=== PATIENT | female | born 1970 | race Caucasian/White ===

== ENCOUNTER 2022-12-10 11:00 | Outpatient (OUT) | payer MEDICARE, MEDICAID, SELFPAY ==
--- NOTE | 2022-12-10 12:55 | PM.CN ---
Consult Note: HPI Data of Consult Patient: new to practice Consult date: 12/10/22 Requesting Physician: Alf Wylie MD Primary Care Provider: Sophie Buenrostro Consult Narrative Reason for consult: Low back, right leg pain Narrative: this is a pleasant 52-year-old female who presents for evaluation. She notes increasing pain that radiates from the low back into the right lower extremity. She has a history of lumbar surgery years ago. She has not had any updated advanced imaging of her lumbar spine for several years. She has engaged and provided written home exercises, which did not provide much relief. She is currently utilizing Flexeril and Lyrica, which provide some relief. She otherwise denies adverse medication side effects or loss of bowel or bladder control. cc:: CC: Alf Wylie MD Review of Systems ROS Status of ROS 10 or more systems reviewed and unremarkable except as noted in history and below Musculoskeletal Reports: back pain and extremity pain (Right leg) Meds Home Medications and Allergies Home Medications Medication Instructions Recorded Confirmed Type amitriptyline 50 mg tablet 50 mg PO DAILY 12/10/22 12/10/22 History atorvastatin 10 mg tablet 10 mg PO DAILY 12/10/22 12/10/22 History cyclobenzaprine 10 mg tablet 10 mg PO QPM PRN as needed 12/10/22 12/10/22 History dulaglutide 3 mg/0.5 mL 3 mg subcut QWEEK 12/10/22 12/10/22 History subcutaneous pen injector (Trulicity) duloxetine 60 mg capsule,delayed 60 mg PO DAILY 12/10/22 12/10/22 History release lantus 50 mg subcut (via wearable 12/10/22 12/10/22 History injectr) QDAY losartan 25 mg tablet (Cozaar) 25 mg PO DAILY 12/10/22 12/10/22 History metformin 1,000 mg tablet 1,000 mg PO BID 12/10/22 12/10/22 History pioglitazone 30 mg tablet 30 mg PO DAILY 12/10/22 12/10/22 History pregabalin 150 mg capsule (Lyrica) 150 mg PO TID 12/10/22 12/10/22 History Allergies Allergy/AdvReac Type Severity Reaction Status Date / Time latex Allergy Mild Verified 12/10/22 11:36 Exam Constitutional: Common normals: no apparent distress, oriented x3 and healthy appearing Respiratory: Common normals: normal respiratory effort Effort & inspection: able to speak in complete sentences Back & Pelvis: Lumbar spine/lower back: pain with ROM, lumbar spinal tenderness and paraspinal muscle tenderness Other: tenderness to palpation throughout the lumbar spine. Pain is elicited with flexion, extension, and lateral rotation of the lumbar spine. Facet loading maneuvers are positive bilaterally. Strength noted to be normal throughout the bilateral lower extremities except for decreased strength rated at four out of five in the right quadriceps femoris, anterior tibialis, posterior tibialis. Sensation noted to be normal throughout the bilateral lower extremities except for dysesthesia in the right L4, L5, S1 dermatomal distributions. Coordination remains intact. Gait remains mildly antalgic. Extremity: Common normals: normal to inspection Right lower extremity: upper leg and lower leg Neuro: Common normals: oriented x3, CN's II-XII intact bilaterally and no focal motor deficits Psych: Common normals: mental status grossly normal and cooperative Skin: Common normals: no rashes or lesions noted General skin exam: no rashes or lesions noted Assessment and Plan Assessment and Plan (1) Lumbar stenosis with neurogenic claudication: (2) Lumbar postlaminectomy syndrome: (3) Lumbar spondylosis: Plan this is a pleasant 52-year-old female who presents for evaluation. She has filled physical and medical modalities, as listed above. Given her failure to respond to more conservative measures, I would like to update her lumbar imaging to further assess for the etiology of her pain. I will have her undergo a lumbar MRI without contrast, as well as an x-ray of the sacrum and bilateral hips. She is in agreement with this plan. Medications were reviewed. We discussed that no additional medications would be adequate at this time, given her current regimen. She expressed understanding. She'll follow up after the imaging is complete.
== END 2022-12-10 11:01 ==
LOC: PM 12-28 10:14
PROVIDERS: PCP Nurse Practitioner; Visit Provider Anesthesiology
DX: M48.062 Spinal stenosis, lumbar region with neurogenic claudication (principal); M96.1 Postlaminectomy syndrome, not elsewhere classified; M47.816 Spondylosis without myelopathy or radiculopathy, lumbar region
CPT/HCPCS: G0463

== ENCOUNTER 2022-12-21 12:28 | Outpatient (OUT) | payer MEDICARE, MEDICAID, SELFPAY ==
--- NOTE | 2022-12-21 12:46 | MR_ITS ---
[address] [address] Patient Name: ESTEBAN MARMOLEJO MRN: [facility]:[id number] date: 1970 Sex: F Assigned Patient Location: MRI Current Patient Location: MRI Accession/Order Number: [id number] Exam Date: 12/21/2022 13:00 Report Date: 12/22/2022 09:04 At the request of: MICHAEL CHIU Procedure: MR lumbar spine wo con EXAMINATION: MR lumbar spine wo con HISTORY: Post-lami syndrom ; chronic lumbar spine pain with right leg pain and weakness COMPARISON: MRI L-spine 08/27/2019 TECHNIQUE: A variety of imaging planes and parameters were utilized for visualization of suspected pathology. FINDINGS: For the purposes of numbering, sagittal T2 image # 10 extends from the T10-11 vertebral body superiorly to the S2 level inferiorly. PARASPINAL AREA: Normal with no visible mass. BONES: No fracture, pars defect, or osseous lesion. CORD/CAUDA EQUINA: Normal caliber, contour, and signal intensity. DISC LEVELS: 12-L1: Moderate degenerative disc disease is present without visible neural impingement. L1-L2: Marked central canal and right foramen narrowing. Moderate left foramen narrowing. Marked diffuse disc bulging slightly eccentric to the right and moderate disc height reduction. Moderate degenerative facet arthropathy and ligamentum flavum thickening bilaterally. Increased central canal fat. L2-L3: Moderate marked central canal and moderate bilateral foramen narrowing. Moderate diffuse disc bulging and disc height reduction. Moderate degenerative facet arthropathy and increased central canal fat. L3-L4: Marked central canal and left foramen narrowing. Moderate right foramen narrowing. Moderate diffuse disc bulging with marked disc height reduction. Moderate marked degenerative facet arthropathy. L4-L5: No significant central canal or right foramen narrowing. Moderate left foramen narrowing. Moderate disc bulging eccentric to the left. Marked disc height reduction. Mild degenerative facet arthropathy. L5-S1: No significant central canal narrowing. Moderate right, marked left foramen narrowing. Marked diffuse disc bulging with left paracentral/foraminal disc protrusion projecting 8 mm into the central canal and extending into the foramen. IMPRESSION: 1. Examination is slightly limited by patient body habitus. 2. Marked central canal narrowing L1-2 through L3-4 secondary to degenerative disc disease and facet arthropathy, but primarily exacerbated by increased fat within the central canal. No appreciable fat within the central canal at L4-5 and L5-S1 which allows for ample room for the nerve roots. 3. Multilevel moderate-marked foramen narrowing secondary to degenerative disc disease and facet arthropathy. 4. L5-S1 left paracentral and foraminal disc extrusion, bordering on extrusion. Electronically authenticated by: MARTA GIBBS Date: 12/22/2022 09:04
== END 2022-12-21 12:29 ==
PROVIDERS: PCP Nurse Practitioner; Visit Provider Anesthesiology
DX: M96.1 Postlaminectomy syndrome, not elsewhere classified (principal); M51.36 Other intervertebral disc degeneration, lumbar region; M48.061 Spinal stenosis, lumbar region without neurogenic claudication
CPT/HCPCS: 72148

== ENCOUNTER 2023-01-08 13:26 | Outpatient (OUT) | payer MEDICARE, MEDICAID, SELFPAY ==
--- NOTE | 2023-01-08 13:47 | XR_ITS ---
The [address] [address] Patient Name: ESTEBAN MARMOLEJO MRN: [id number] date: 1970 Sex: F Assigned Patient Location: [facility] Current Patient Location: Accession/Order Number: [id number] Exam Date: 01/08/2023 13:50 Report Date: 01/09/2023 08:35 At the request of: NON-STAFF PHYSICIAN Procedure: XR sacrum coccyx min 2V EXAM: XR hip CHRIS, XR sacrum coccyx min 2V HISTORY: BILATERAL HIP chronic PAIN. LUMBAR/SACRAL PAIN COMPARISON: None. TECHNIQUE: Bilateral two-view hip. 3 views sacrum and coccyx. FINDINGS: Pelvic rings are intact including the sacrum and coccyx where seen although limited by body habitus. Minimal to mild degenerative change of the SI joints. Lower lumbar spondylosis. Minimal degenerative change of the hip joints with no fracture or dislocation. IMPRESSION: Slight early degenerative changes throughout the hips and pelvic rings but no acute process. Electronically authenticated by: MACY RUIZ Date: 01/09/2023 08:35
--- NOTE | 2023-01-08 13:47 | XR_ITS ---
The [address] [address] Patient Name: ESTEBAN MARMOLEJO MRN: [id number] date: 1970 Sex: F Assigned Patient Location: [facility] Current Patient Location: Accession/Order Number: [id number] Exam Date: 01/08/2023 13:50 Report Date: 01/09/2023 08:35 At the request of: NON-STAFF PHYSICIAN Procedure: XR hip CHRIS EXAM: XR hip CHRIS, XR sacrum coccyx min 2V HISTORY: BILATERAL HIP chronic PAIN. LUMBAR/SACRAL PAIN COMPARISON: None. TECHNIQUE: Bilateral two-view hip. 3 views sacrum and coccyx. FINDINGS: Pelvic rings are intact including the sacrum and coccyx where seen although limited by body habitus. Minimal to mild degenerative change of the SI joints. Lower lumbar spondylosis. Minimal degenerative change of the hip joints with no fracture or dislocation. IMPRESSION: Slight early degenerative changes throughout the hips and pelvic rings but no acute process. Electronically authenticated by: MACY RUIZ Date: 01/09/2023 08:35
== END 2023-01-08 13:27 | disposition home or self-care (01) ==
PROVIDERS: PCP Nurse Practitioner; Visit Provider Anesthesiology
DX: M25.552 Pain in left hip (principal); M25.551 Pain in right hip; M47.816 Spondylosis without myelopathy or radiculopathy, lumbar region; M47.818 Spondylosis without myelopathy or radiculopathy, sacral and sacrococcygeal region; M16.0 Bilateral primary osteoarthritis of hip
CPT/HCPCS: 72220; 73522

== ENCOUNTER 2023-01-10 10:23 | Outpatient (OUT) | payer MEDICARE, MEDICAID, SELFPAY ==
--- NOTE | 2023-01-10 11:27 | PM.CN ---
Consult Note: HPI Data of Consult Patient: new to practice Consult date: 01/10/23 Requesting Physician: Alf Wylie MD Primary Care Provider: Sophie Buenrostro Consult Narrative Reason for consult: low back, bilateral lower extremity pain and weakness Narrative: this is a pleasant 52-year-old female who presents for assessment. She notes persistence of pain that radiates from her low back into the bilateral lower extremity. She recently underwent lumbar imaging, which is significant for multiple levels of moderate to severe stenosis, particularly at L2-L3 and L3-L4. There is also significant facet arthropathy throughout essentially her entire lumbar spine. She continues to utilize Lyricaand Flexeril, which provides some relief. She continues in her provider directed home exercises, which have not provided relief. She otherwise denies adverse medications artifactual loss of bowel or bladder control. cc:: CC: Alf Wylie MD Review of Systems ROS Status of ROS 10 or more systems reviewed and unremarkable except as noted in history and below Meds Home Medications and Allergies Home Medications Medication Instructions Recorded Confirmed Type amitriptyline 50 mg tablet 50 mg PO DAILY 12/10/22 12/10/22 History atorvastatin 10 mg tablet 10 mg PO DAILY 12/10/22 12/10/22 History cyclobenzaprine 10 mg tablet 10 mg PO QPM PRN as needed 12/10/22 12/10/22 History dulaglutide 3 mg/0.5 mL 3 mg subcut QWEEK 12/10/22 12/10/22 History subcutaneous pen injector (Trulicity) duloxetine 60 mg capsule,delayed 60 mg PO DAILY 12/10/22 12/10/22 History release lantus 50 mg subcut (via wearable 12/10/22 12/10/22 History injectr) QDAY losartan 25 mg tablet (Cozaar) 25 mg PO DAILY 12/10/22 12/10/22 History metformin 1,000 mg tablet 1,000 mg PO BID 12/10/22 12/10/22 History pioglitazone 30 mg tablet 30 mg PO DAILY 12/10/22 12/10/22 History pregabalin 150 mg capsule (Lyrica) 150 mg PO TID 12/10/22 12/10/22 History Allergies Allergy/AdvReac Type Severity Reaction Status Date / Time latex Allergy Mild Verified 12/10/22 11:36 Exam Constitutional Common normals: no apparent distress, oriented x3 and healthy appearing Respiratory Common normals: normal respiratory effort Effort & inspection: able to speak in complete sentences Back & Pelvis Other: tenderness to palpation through the bilateral lumbar spine and paraspinal musculature. Pain is elicited with flexion, extension, and lateral rotation of the lumbar spine. Facet loading maneuvers are positive bilaterally. Strength noted to be unremarkable throughout the bilateral lower extremities except for decreased strength rated at four out of five in the bilateral quadriceps femoris, anterior tibialis. Sensation noted to be unremarkable throughout the bilateral lower extremities except for dysesthesia in the bilateral L3, L4, L5 dermatomal distributions. Tenderness to palpation throughout the bilateral PSIS. Constantine's maneuver is positive bilaterally. Thigh thrust positive bilaterally. Coordination remains intact. Gait remains mildly antalgic. Extremity Common normals: normal to inspection Neuro Common normals: oriented x3, CN's II-XII intact bilaterally and no focal motor deficits Psych Common normals: mental status grossly normal and cooperative Assessment and Plan Assessment and Plan (1) Sacroiliac joint dysfunction of both sides: (2) Lumbar stenosis with neurogenic claudication: (3) Lumbar postlaminectomy syndrome: (4) Lumbar spondylosis: Plan this is a pleasant 52-year-old female who presents for assessment. She has persistence of pain throughout her low back that radiates into the bilateral lower extremities. Imaging was reviewed, as noted above. Given her failure to respond to conservative measures, coupled with her imaging findings, it is prudent to attempt bilateral L3 transforaminal epidural steroid injection. She may even benefit from bilateral sacroiliac joint injection. She is in agreement with this plan. Medications were reviewed, and no changes were made at this time. She will follow-up after the procedure is completed.
== END 2023-01-10 10:24 | disposition home or self-care (01) ==
LOC: PM 10:23
PROVIDERS: PCP Nurse Practitioner; Visit Provider Anesthesiology
DX: M53.3 Sacrococcygeal disorders, not elsewhere classified (principal); M48.062 Spinal stenosis, lumbar region with neurogenic claudication; M96.1 Postlaminectomy syndrome, not elsewhere classified; M47.816 Spondylosis without myelopathy or radiculopathy, lumbar region
CPT/HCPCS: G0463

== ENCOUNTER 2023-01-24 08:32 | Day surgery (SDC) | payer MEDICARE, MEDICAID, SELFPAY ==
[2023-01-24 09:16] VITALS: BP 186/94; PULSE 89; RESP 14; TEMP 36.3; O2SAT 98
[2023-01-24 09:25] LABS: Glucometer 88 mg/dL (74-106)
[2023-01-24] MEDS: 0.9 % SODIUM CHLORIDE 10 ML INJ (10:01)
[2023-01-24] MEDS: DEXAMETHASONE SODIUM PHOSPHATE 10 MG/ML VIAL INJ (10:02)
[2023-01-24] MEDS: BUPIVACAINE HCL 0.25% PF 25 MG/10 ML VIAL INJ (10:02)
[2023-01-24] MEDS: IOHEXOL 240 MG/ML - 10 ML VIAL INJ (10:02)
[2023-01-24] MEDS: LIDOCAINE HCL 2% PF 100 MG/5 ML VIAL INJ (10:03)
--- NOTE | 2023-01-24 10:04 | W.PM.PROCNOT ---
Date of procedure: 01/24/23 Pre-op diagnosis: Lumbar stenosis with neurogenic claudication Post-op diagnosis: same Procedure: Procedure: Bilateral L3-4 transforaminal epidural steroid injection Medications: Bupivacaine 0.25% 2cc, normal saline 0.9% 1cc, kenalog 40mg The patient was seen and examined in the preoperative holding area.? Informed consent was obtained and placed on the chart.? Patient was brought to the medical procedure unit and placed in the prone position where a timeout was completed verifying the correct patient, procedure site, position, and planned special equipment using sterile aseptic technique.? Under direct fluoroscopic visualization a 25-gauge Quincke tipped spinal needle was advanced at level left L3-4 to the designated neural foramen where contrast dye was injected to show adequate spread.? There was no evidence of vascular or adverse uptake.? Epidural spread was appreciated.? The above-mentioned injectate was then placed in a 1.5 mL aliquot preceded by negative aspiration.? The needle was removed. The same procedure, at the same level, was completed on the opposite side. ? Patient was taken to the postprocedural recovery area and monitored for an appropriate length of time before found suitable for discharge in the accompaniment of a responsible adult. Anesthesia: None Surgeon: Alf Wylie Pathology: none sent Condition: stable
[2023-01-24 14:55] VITALS: BP 200/88; BP 201/90; PULSE 84; PULSE 85; RESP 18; O2SAT 95; O2SAT 97
== END 2023-01-24 10:08 | disposition home or self-care (01) ==
PROVIDERS: PCP Nurse Practitioner; Visit Provider Anesthesiology
DX: M48.062 Spinal stenosis, lumbar region with neurogenic claudication (principal)
CPT/HCPCS: 36415; 64483; 82948; J1100; Q9966

== ENCOUNTER 2023-02-21 07:51 | Day surgery (SDC) | payer MEDICARE, MEDICAID, SELFPAY ==
[2023-02-21 08:18] LABS: Glucometer 100 mg/dL (74-106)
[2023-02-21 08:19] VITALS: BP 153/80; PULSE 85; RESP 20; TEMP 36.3; O2SAT 98
[2023-02-21] MEDS: LIDOCAINE HCL 2% PF 100 MG/5 ML VIAL INJ (09:11)
[2023-02-21] MEDS: IOHEXOL 240 MG/ML - 10 ML VIAL INJ (09:11)
[2023-02-21] MEDS: BUPIVACAINE HCL 0.25% PF 25 MG/10 ML VIAL INJ (09:11)
[2023-02-21] MEDS: TRIAMCINOLONE ACETONIDE 40 MG/ML VIAL INJ (09:11)
--- NOTE | 2023-02-21 09:13 | W.PM.PROCNOT ---
Date of procedure: 02/21/23 Pre-op diagnosis: Sacroiliitis, bilateral Post-op diagnosis: same as pre-op Procedure: Procedure: Bilateral block of the nerve innervating the sacroiliac joint Medications: Bupivacaine 0.25% 3cc, kenalog 40mg x2 After informed consent was obtained, the patient was brought to the medical procedure unit and placed in the prone position, when a timeout was completed verifying correct patient, procedure, site, positioning, implant, and/or special equipment.? The skin overlying the area was prepped and draped in standard sterile fashion using alcohol.? A 25-gauge needle was inserted towards the nerve innervating the left sacroiliac joint under direct fluoroscopic imaging.? Needle tip was advanced until the nerve was encountered.? A total of 4 mL of solution was injected after 1cc contrast indicated no vascular uptake.? Postoperatively needles were removed. The same procedure was then completed on the opposite side. The patient tolerated the procedure well without complication.? The patient reported reduction in pain symptoms postoperatively. Anesthesia: None Surgeon: Alf Wylie Pathology: none sent Condition: stable Disposition: no change
[2023-02-21 13:24] VITALS: BP 193/90; BP 219/102; PULSE 83; PULSE 84; RESP 20; O2SAT 94; O2SAT 95
== END 2023-02-21 09:18 | disposition home or self-care (01) ==
PROVIDERS: PCP Nurse Practitioner; Visit Provider Anesthesiology
DX: M46.1 Sacroiliitis, not elsewhere classified (principal)
CPT/HCPCS: 36415; 64451; 77002; 82948; Q9966

== ENCOUNTER 2023-03-02 12:50 | Outpatient (OUT) | payer MEDICARE, MEDICAID, SELFPAY ==
--- NOTE | 2023-03-02 13:17 | P.CN_ITS ---
Consult Note: HPI Data of Consult Patient: known to practice within the last 3 years Requesting Physician: Mireya Edouard NP Primary Care Provider: Sophie Buenrostro Consult Narrative Narrative: Carine Shepherd is a pleasant 52 year old patient who presents for evaluation of low back pain and right leg pain. Patient feels immediately after L3 TFESI she was able to stand up better but her leg pain and numbness/weakness did not improve, the ability to stand better only lasted a few days. Bilateral SIJ injections took the edge off her pain but did not last longer than a few days of mild pain relief. Todays low back pain 09/17, CHRISTIE 29% cc:: CC: Mireya Edouard NP Review of Systems ROS Status of ROS 10 or more systems reviewed and unremarkable except as noted in history and below Musculoskeletal Reports: back pain, joint pain and limited range of motion PFSH PFS Medical History Surgical History Meds Home Medications and Allergies Home Medications Medication Instructions Recorded Confirmed Type amitriptyline 50 mg tablet 50 mg PO DAILY 12/10/22 02/21/23 History atorvastatin 10 mg tablet 10 mg PO DAILY 12/10/22 02/21/23 History cyclobenzaprine 10 mg tablet 10 mg PO QPM PRN as needed 12/10/22 02/21/23 History dulaglutide 3 mg/0.5 mL 3 mg subcut QWEEK 12/10/22 02/21/23 History subcutaneous pen injector (Trulicity) duloxetine 60 mg capsule,delayed 60 mg PO DAILY 12/10/22 01/24/23 History release lantus 50 mg subcut (via wearable 12/10/22 02/21/23 History injectr) QDAY losartan 25 mg tablet (Cozaar) 25 mg PO DAILY 12/10/22 02/21/23 History metformin 1,000 mg tablet 1,000 mg PO BID 12/10/22 02/21/23 History pioglitazone 30 mg tablet 30 mg PO DAILY 12/10/22 02/21/23 History pregabalin 150 mg capsule (Lyrica) 150 mg PO TID 12/10/22 02/21/23 History Allergies Allergy/AdvReac Type Severity Reaction Status Date / Time latex Allergy Mild Verified 12/10/22 11:36 Exam Narrative Exam Narrative: Modified exam, patient unable to stand for exam due to size and pain. Constitutional Documenting provider has reviewed patient's vital signs: yes Common normals: no apparent distress and oriented x3 General appearance: cooperative Nutritional appearance: obese HENMT Common normals: normocephalic and hearing grossly normal bilaterally Head and scalp: normocephalic Eye Common normals: PERRL and EOMs intact bilaterally Pupil: PERRL Neck & C-Spine Common normals: full ROM General: normal visual inspection Chest Common normals: inspection of chest normal Respiratory Common normals: normal respiratory effort, no retractions and no use of accessory muscles Back & Pelvis Lumbar spine/lower back: ROM limited, pain with ROM and straight leg raise negative bilaterally (caused bilateral low back pain) Sacroiliac joints: SI joints normal (positive BETY bilaterally) Other: patient wheelchair bound, unable to stand or participate in exam today due to size and weakness/pain. modified exam as noted above Extremity Common normals: normal to inspection and full ROM (limited ROM) Neuro Common normals: oriented x3, CN's II-XII intact bilaterally, moves all extremities, no focal motor deficits and no sensory deficits noted Sensorium/orientation: alert Speech: speech normal Gait (neuro): unable to assess gait and assistive device used (wheelchair) other Motor exam: no tremor noted, no movement abnormalities noted and strength abn ormal (BUE 5/5 BLE 4/5 ) Psych Common normals: mental status grossly normal, thought process normal, cooperative, affect normal, speech normal and activity/motor behavior normal Speech: normal speech Thought process: normal thought process Results Additional Findings Additional findings: I have checked an [place] report on this patient today and there are no aberrancies noted in the prescribing history.?? A drug screen was completed and reviewed within the last year, and if there has not been a drug screen completed we ordered one today to monitor higher risk, state monitored pain medication use. As part of providing excellent, safe, comprehensive care, the following was completed at our patient's visit: 1. A medication reconciliation and review to ensure accurate knowledge of current/active medications, including asking our patients to inform us about any [id number] medications or herbal remedies/nutritional supplements/alternative remedies. 2. A review to specifically ensure our patients have had annual screening for: elevated body mass index (BMI), tobacco use, screening for depression, and screening for unhealthy alcohol use. When screening is concerning, patients are provided with education and the specific recommendation to discuss the concerning health issue and treatment options with their primary care provider. Assessment and Plan Assessment and Plan (1) Lumbar postlaminectomy syndrome: Assessment and Plan: consider steroid rotation or change in epidural approach in the future, patient noticed increase in home blood sugars and only a few days of pain relief (2) Lumbar spondylosis: Assessment and Plan: reviewed most recent imaging and MRI, will target facet arthropathy with facet blocks bilaterally at L4/5 L5/S1 (3) Sacroiliac joint dysfunction of both sides: Assessment and Plan: SIJ injection provided mild relief for a few days Plan Bilateral facet blocks at L4/5 L5/S1 under fluoroscopy f/u after injection
== END 2023-03-02 12:51 | disposition home or self-care (01) ==
PROVIDERS: PCP Nurse Practitioner; Visit Provider Nurse Practitioner
DX: M96.1 Postlaminectomy syndrome, not elsewhere classified (principal); M47.816 Spondylosis without myelopathy or radiculopathy, lumbar region; M53.3 Sacrococcygeal disorders, not elsewhere classified
CPT/HCPCS: G0463

== ENCOUNTER 2023-03-21 08:57 | Day surgery (SDC) | payer MEDICARE, MEDICAID, SELFPAY ==
[2023-03-21 10:03] VITALS: BP 175/90; PULSE 83; RESP 16; TEMP 36.2; O2SAT 97
[2023-03-21 10:06] LABS: Glucometer 84 mg/dL (74-106)
[2023-03-21] MEDS: BUPIVACAINE HCL 0.25% PF 25 MG/10 ML VIAL INJ (10:36)
[2023-03-21] MEDS: LIDOCAINE HCL 2% PF 100 MG/5 ML VIAL INJ (10:36)
[2023-03-21] MEDS: TRIAMCINOLONE ACETONIDE 40 MG/ML VIAL INJ (10:36)
[2023-03-21 10:37] VITALS: BP 175/87; PULSE 77; RESP 18; O2SAT 98
[2023-03-21 10:38] VITALS: BP 187/92; PULSE 75; RESP 18; O2SAT 95
--- NOTE | 2023-03-21 10:44 | W.PM.PROCNOT ---
Date of procedure: 03/21/23 Pre-op diagnosis: Lumbar spondylosis Post-op diagnosis: same as pre-op Procedure: Procedure: Bilateral L4-5, L5-S1 medial branch block Medications: Bupivacaine 0.25% 4cc The patient was seen and examined in the preoperative holding area.? An informed consent was obtained and placed on the chart.? The patient was brought to the medical procedure unit and placed in the prone position.? A timeout was completed verifying correct patient, procedure site, positioning, plan, and special equipment.? Using aseptic technique, the needle was placed at left L4. Under direct fluoroscopic visualization a Quincke-tipped spinal needle was advanced to the junction of the superior articulating process with the transverse process at the designated medial branch segment.? Preceded by negative aspiration, the above-mentioned injectate was placed in 1 mL aliquots.? The procedure was repeated at left L5, S1.? The needle was removed and insertion site was covered. The same procedure, at the same levels, was completed on the right side. The patient was taken to the postprocedural recovery area and monitored for an appropriate length of time before found suitable for discharge in the company of a responsible adult. Anesthesia: Local Surgeon: Alf Wylie Pathology: none sent Condition: stable Disposition: no change
== END 2023-03-21 10:45 | disposition home or self-care (01) ==
PROVIDERS: PCP Nurse Practitioner; Visit Provider Anesthesiology
DX: M47.816 Spondylosis without myelopathy or radiculopathy, lumbar region (principal); Z79.4 Long term (current) use of insulin; Z79.84 Long term (current) use of oral hypoglycemic drugs
CPT/HCPCS: 36415; 64493; 64494; 82948

== ENCOUNTER 2023-03-30 08:51 | Outpatient (OUT) | payer MEDICARE, MEDICAID, SELFPAY ==
--- NOTE | 2023-03-30 09:15 | P.CN_ITS ---
Consult Note: HPI Data of Consult Patient: known to practice within the last 3 years Requesting Physician: Mireya Edouard NP Primary Care Provider: Sophie Buenrostro Consult Narrative Reason for consult: f/u Narrative: Carine Shepherd a pleasant 52 year old female presents for evaluation of chronic low back and bilateral hip pain. Today rating pain 8/10 in bilateral low back and radiating into right leg. Recently underwent bilateral L4-5 L5-S1 MBB with no pain relief or functional improvement. Patient tearful at today's visit due to feelings of frustration with not responding well to procedures. Patient would like to discuss additional treatment options. cc:: CC: Mireya Edouard NP Review of Systems ROS Status of ROS 10 or more systems reviewed and unremarkable except as noted in history and below [facility] Medical History Surgical History Meds Home Medications and Allergies Home Medications Medication Instructions Recorded Confirmed Type amitriptyline 50 mg tablet 50 mg PO DAILY 12/10/22 03/21/23 History atorvastatin 10 mg tablet 10 mg PO DAILY 12/10/22 03/21/23 History cyclobenzaprine 10 mg tablet 10 mg PO QPM PRN as needed 12/10/22 03/21/23 History dulaglutide 3 mg/0.5 mL 3 mg subcut QWEEK 12/10/22 03/21/23 History subcutaneous pen injector (Trulicity) duloxetine 60 mg capsule,delayed 60 mg PO DAILY 12/10/22 01/24/23 History release lantus 50 mg subcut (via wearable 12/10/22 03/21/23 History injectr) QDAY losartan 25 mg tablet (Cozaar) 25 mg PO DAILY 12/10/22 02/21/23 History metformin 1,000 mg tablet 1,000 mg PO BID 12/10/22 03/21/23 History pioglitazone 30 mg tablet 30 mg PO DAILY 12/10/22 03/21/23 History pregabalin 150 mg capsule (Lyrica) 150 mg PO TID 12/10/22 03/21/23 History Allergies Allergy/AdvReac Type Severity Reaction Status Date / Time latex Allergy Mild Verified 03/21/23 10:01 Exam Narrative Exam Narrative: Modified exam, patient unable to stand for exam due to size and pain. Constitutional Documenting provider has reviewed patient's vital signs: yes Common normals: no apparent distress, oriented x3, healthy appearing, alert and well nourished General appearance: cooperative Nutritional appearance: obese HENMT Common normals: normocephalic, hearing grossly normal bilaterally and moist oral mucous membranes Head and scalp: normocephalic Eye Common normals: PERRL Pupil: PERRL Neck & C-Spine Common normals: full ROM General: normal visual inspection Chest Common normals: inspection of chest normal Respiratory Common normals: normal respiratory effort, no retractions and no use of accessory muscles Back & Pelvis Lumbar spine/lower back: ROM limited, pain with ROM and straight leg raise negative bilaterally (caused bilateral low back pain) Sacroiliac joints: SI joints normal (positive BETY bilaterally) Other: patient wheelchair bound, unable to stand or participate in exam today due to size and weakness/pain. modified exam as noted above Extremity Common normals: normal to inspection and full ROM (limited ROM) Neuro Common normals: oriented x3, CN's II-XII intact bilaterally, moves all extremities, no focal motor deficits, no sensory deficits noted and deep tendon reflexes 2+ bilaterally Sensorium/orientation: alert Speech: speech normal Gait (neuro): unable to assess gait and assistive device used (wheelchair) other Motor exam: strength 5/5 throughout and no movement abnormalities noted Psych Common normals: mental status grossly normal, thought process normal, cooperative, affect normal, speech normal and activity/motor behavior normal Speech: normal speech Thought process: normal thought process Assessment and Plan Assessment and Plan (1) Lumbar postlaminectomy syndrome: Assessment and Plan: based on mild short term relief from previous TFESI, will alternate levels and repeat TFESI at bilateral L4-5 (2) Lumbar spondylosis: (3) Sacroiliac joint dysfunction of both sides: Assessment and Plan: SIJ injection provided mild relief for a few days (4) Depression: (5) Obesity: Assessment and Plan: The patient was counseled that proper dietary changes and consistent participation in a home exercise plan can lead to weight loss. Weight loss can help to improve functionality in patients with chronic pain.? (6) Low back pain: Plan Extensive therapeutic conversation at today's visit as well as encouragement to reach out to PCP and mental health resources in the community as the patient lost her to COVID and has been struggling with depression and weight gain as a result of pain and these events. stop ibuprofen, start celebrex 100mg QD-BID PRN continue current medications, not interested in switching from lyrica to zonegran at this time. Discussed possible weight loss benefit. continue f/u with PCP to discuss mood/depression and weight loss strategies start PT for low back pain and weakness bilateral L4-5 TFESI under fluoroscopy f/u 2 weeks after
== END 2023-03-30 08:52 | disposition home or self-care (01) ==
LOC: PM 08:51
PROVIDERS: PCP Nurse Practitioner; Visit Provider Nurse Practitioner
DX: M47.816 Spondylosis without myelopathy or radiculopathy, lumbar region (principal); M96.1 Postlaminectomy syndrome, not elsewhere classified; M53.3 Sacrococcygeal disorders, not elsewhere classified; F32.A Depression, unspecified; E66.9 Obesity, unspecified; M54.50 Low back pain, unspecified
CPT/HCPCS: G0463

== ENCOUNTER 2023-04-12 08:39 | Outpatient (OUT) | payer MEDICARE, MEDICAID, SELFPAY ==
[2023-04-12 09:29] LABS: Estimated Average Glucose 97 mg/dL
[2023-04-12 10:13] LABS: Basophils Percent Auto 0.3 % (0.2-2.0); Eosinophils Absolute Auto 0.3 10^3/uL (0.0-0.7); Eosinophils Percent Auto 3.1 % (0.9-7.0); Hematocrit 34.9 % (36.0-48.0); Hemoglobin 10.7 g/dL (12.0-16.0); Immature Granulocytes Abs Auto 0.05 10^3/uL (0.00-0.03); Immature Granulocytes Pct Auto 0.6 % (0.0-0.5); Lymphocytes Absolute Auto 2.5 10^3/uL (1.2-3.8); Lymphocytes Percent Auto 27.9 % (20.5-60.0); Mean Corpuscular HGB Conc 30.7 g/dL (29.9-35.2); Mean Corpuscular Hemoglobin 26.8 pg (26.7-34.0); Mean Corpuscular Volume 87.5 fL (81.0-99.0); Mean Platelet Volume 11.7 fL (9.5-13.5); Monocytes Absolute Auto 0.4 10^3/uL (0.3-0.8); Monocytes Percent Auto 4.9 % (1.7-12.0); Neutrophils Absolute Auto 5.7 10^3/uL (1.4-6.5); Neutrophils Percent Auto 63.2 % (43.0-75.0); Platelet Count 135 10^3/uL (150-450); Red Blood Count 3.99 10^6/uL (4.20-5.40); Red Cell Distribution Width 17.8 % (11.0-15.0)
[2023-04-12 13:03] LABS: Anion Gap 10.2; BUN Creatinine Ratio 21.7; Calcium 8.5 mg/dL (8.5-10.1); Carbon Dioxide 30.7 mmol/L (21.0-32.0); Chloride 103 mmol/L (98-107); Estimated GFR (African America >60 (>=60); Estimated GFR (Non-African Ame >60 (>=60); Glucose 75 mg/dL (74-106); Potassium 3.9 mmol/L (3.5-5.1); Sodium 140 mmol/L (136-145)
== END 2023-04-12 08:40 | disposition home or self-care (01) ==
LOC: LAB 08:41
PROVIDERS: PCP Nurse Practitioner; Visit Provider Nurse Practitioner
DX: E11.9 Type 2 diabetes mellitus without complications (principal); D64.9 Anemia, unspecified
CPT/HCPCS: 36415; 80048; 82607; 82728; 83036; 83540; 85025

== ENCOUNTER 2023-04-21 13:10 | Emergency (ER) | payer MEDICARE, MEDICAID, SELFPAY ==
[2023-04-21 13:15] VITALS: BP 174/110; PULSE 92; RESP 18; TEMP 36.7; O2SAT 98; BMI 64.9
[2023-04-21 14:18] LABS: Basophils Percent Auto 0.5 % (0.2-2.0); Eosinophils Absolute Auto 0.3 10^3/uL (0.0-0.7); Eosinophils Percent Auto 3.1 % (0.9-7.0); Hematocrit 34.6 % (36.0-48.0); Hemoglobin 10.6 g/dL (12.0-16.0); Immature Granulocytes Abs Auto 0.05 10^3/uL (0.00-0.03); Immature Granulocytes Pct Auto 0.6 % (0.0-0.5); Lymphocytes Absolute Auto 1.9 10^3/uL (1.2-3.8); Lymphocytes Percent Auto 21.4 % (20.5-60.0); Mean Corpuscular HGB Conc 30.6 g/dL (29.9-35.2); Mean Platelet Volume 11.9 fL (9.5-13.5); Monocytes Absolute Auto 0.4 10^3/uL (0.3-0.8); Monocytes Percent Auto 4.4 % (1.7-12.0); Neutrophils Absolute Auto 6.2 10^3/uL (1.4-6.5); Platelet Count 141 10^3/uL (150-450); Red Blood Count 3.93 10^6/uL (4.20-5.40); Red Cell Distribution Width 17.3 % (11.0-15.0); White Blood Count 8.8 10^3/uL (4.0-11.0)
[2023-04-21 14:22] LABS: INR 0.97; Prothrombin Time 10.3 sec (9.0-11.6)
[2023-04-21 14:23] LABS: Alanine Aminotransferase 42 U/L (14-59); Albumin Globulin Ratio 0.7; Alkaline Phosphatase 88 U/L (46-116); Anion Gap 8.4; Aspartate Amino Transferase 27 U/L (15-37); BUN Creatinine Ratio 17.9; Bilirubin Total 0.3 mg/dL (0.2-1.0); Calcium 9.1 mg/dL (8.5-10.1); Carbon Dioxide 36.7 mmol/L (21.0-32.0); Chloride 102 mmol/L (98-107); Estimated GFR (African America >60 (>=60); Estimated GFR (Non-African Ame >60 (>=60); Globulin 4.1 g/dL; Glucose 103 mg/dL (74-106); Potassium 4.1 mmol/L (3.5-5.1); Sodium 143 mmol/L (136-145); Total Protein 7.1 g/dL (6.4-8.2)
--- NOTE | 2023-04-21 14:36 | ED.GENADUL1 ---
HPI - General Adult General Chief complaint: Extremity Injury, Lower Stated complaint: CAN'T STAND/PAIN/CAME FROM [facility] Time Seen by Provider: 04/21/23 13:22 Source: patient Mode of arrival: Wheelchair History of Present Illness HPI narrative: patient is a 52-year-old female who presents to the emergency department from her PCP office for the evaluation of right-sided abdominal pain and pitting edema to the abdominal wall. Patient states she developed abdominal pain today. She has a history of chronic back pain from herniated disks. She reports pain in the back today and pain with standing up, but the pain in the right side of the abdomen is new. She has had a hysterectomy as well as cholecystectomy. patient is morbidly obese. She states that her PCP noted pitting edema to the abdominal wall and was concerned, referred her to the Emergency Room. Patient has had no new chest pain, shortness breath, peripheral edema, fevers, vomiting, urinary symptoms. No medications taken prior to arrival. Related Data Home Medications Medication Instructions Recorded Confirmed amitriptyline 50 mg tablet 50 mg PO DAILY 12/10/22 03/21/23 atorvastatin 10 mg tablet 10 mg PO DAILY 12/10/22 03/21/23 cyclobenzaprine 10 mg tablet 10 mg PO QPM PRN as needed 12/10/22 03/21/23 dulaglutide 3 mg/0.5 mL 3 mg subcut QWEEK 12/10/22 03/21/23 subcutaneous pen injector ([facility] [place]) duloxetine 60 mg capsule,delayed 60 mg PO DAILY 12/10/22 01/24/23 release lantus 50 mg subcut (via wearable 12/10/22 03/21/23 injectr) QDAY losartan 25 mg tablet (Cozaar) 25 mg PO DAILY 12/10/22 02/21/23 metformin 1,000 mg tablet 1,000 mg PO BID 12/10/22 03/21/23 pioglitazone 30 mg tablet 30 mg PO DAILY 12/10/22 03/21/23 pregabalin 150 mg capsule (Lyrica) 150 mg PO TID 12/10/22 03/21/23 Previous Rx's Medication Instructions Recorded cephalexin 500 mg capsule 500 mg PO Q8H 10 days #30 caps 04/21/23 ondansetron 4 mg disintegrating 4 mg PO Q6H PRN nausea and 04/21/23 tablet vomiting #12 tabs oxycodone-acetaminophen 5 mg-325 1 tab PO Q6H PRN pain #15 tabs 04/21/23 mg tablet (Percocet) Allergies Allergy/AdvReac Type Severity Reaction Status Date / Time latex Allergy Mild Verified 03/21/23 10:01 Review of Systems ROS Constitutional Denies: fever or chills Ears, nose, mouth, and throat Denies: throat pain Cardiovascular Denies: chest pain Respiratory Denies: shortness of breath or cough Gastrointestinal Reports: abdominal pain; Denies: nausea or vomiting Genitourinary Denies: painful urination Musculoskeletal Reports: back pain Integumentary/Breast Denies: rash Neurological Denies: headache Endocrine Denies: excessive urination PFSH PFS Medical History Surgical History Exam Narrative Exam Narrative: Gen.: Awake, alert, in no distress, morbidly obese sitting on the side of the bed Head: Normocephalic, atraumatic ENT: Moist mucous membranes Respiratory: No respiratory distress, lungs clear bilaterally Cardio: Regular rate and rhythm Gastrointestinal: Abdomen is soft, obese with minimal pitting edema noted to the anterior, lower aspect of the abdomen under the umbilicus. There is no evidence of abdominal wall cellulitis. Diffusely tender to palpation of the right side of the abdomen. Exam is limited by the patient's body habitus. back: No bony point tenderness of the T-spine or L-spine Extremities: Moves extremities equally, no injuries noted Psych: Normal mood and affect Neuro: No focal neuro deficit Skin: Warm, dry, intact Constitutional Vital Signs, click to edit/add: Last Vital Signs Temp 98.1 F 04/21/23 13:15 Pulse 92 H 04/21/23 13:15 Resp 16 04/21/23 14:50 BP 174/110 H 04/21/23 13:15 Pulse Ox 98 04/21/23 13:15 O2 Del Method Room Air 04/21/23 13:15 Course Vital Signs Vital signs: Vital Signs Temperature 98.1 F 04/21/23 13:15 Pulse Rate 92 H 04/21/23 13:15 Respiratory Rate 18 04/21/23 13:15 Blood Pressure 174/110 H 04/21/23 13:15 Pulse Oximetry 98 04/21/23 13:15 Oxygen Delivery Method Room Air 04/21/23 13:15 Temperature 98.1 F 04/21/23 13:15 Pulse Rate 92 H 04/21/23 13:15 Respiratory Rate 16 04/21/23 14:50 Blood Pressure 174/110 H 04/21/23 13:15 Pulse Oximetry 98 04/21/23 13:15 Oxygen Delivery Method Room Air 04/21/23 13:15 Medical Decision Making MDM Narrative Medical decision making narrative: patient treated with IV fluids, Dilaudid, Zofran. She has no focal neuro deficits or bony point tenderness of the lower lumbar spine. Labs are unremarkable and CT of the abdomen and pelvis with no acute abnormalities although the abdominal wall is thickened on CT. We will treat as a precaution with Keflex and patient is given a short course of analgesics and nausea medication. Follow-up with PCP and return to the Emergency Room if symptoms change or worsen. Medical Records Medical records reviewed: Yes I reviewed the patient's medical records Lab Data Lab results reviewed: Yes I reviewed the patient's lab results Labs: Lab Results 04/21/23 Range/Units 13:50 WBC 8.8 (4.0-11.0) 10^3/uL RBC 3.93 L (4.20-5.40) 10^6/uL Hgb 10.6 L (12.0-16.0) g/dL Hct 34.6 L (36.0-48.0) % MCV 88.0 (81.0-99.0) fL MCH 27.0 (26.7-34.0) pg MCHC 30.6 (29.9-35.2) g/dL RDW 17.3 H (11.0-15.0) % Plt Count 141 L (150-450) 10^3/uL MPV 11.9 (9.5-13.5) fL Neut % (Auto) 70.0 (43.0-75.0) % Lymph % (Auto) 21.4 (20.5-60.0) % [place] % (Auto) 4.4 (1.7-12.0) % Eos % (Auto) 3.1 (0.9-7.0) % Baso % (Auto) 0.5 (0.2-2.0) % Neut # (Auto) 6.2 (1.4-6.5) 10^3/uL Lymph # (Auto) 1.9 (1.2-3.8) 10^3/uL Florence # (Auto) 0.4 (0.3-0.8) 10^3/uL Eos # (Auto) 0.3 (0.0-0.7) 10^3/uL Baso # (Auto) 0.0 (0.0-0.1) 10^3/uL Abs Immat Gran (auto) 0.05 H (0.00-0.03) 10^3/uL Imm/Tot Granulo (auto) 0.6 H (0.0-0.5) % PT 10.3 (9.0-11.6) sec INR 0.97 Sodium 143 (136-145) mmol/L Potassium 4.1 (3.5-5.1) mmol/L Chloride 102 (98-107) mmol/L Carbon Dioxide 36.7 H (21.0-32.0) mmol/L Anion Gap 8.4 BUN 14.0 (7.0-18.0) mg/dL Creatinine 0.78 (0.55-1.02) mg/dL Est GFR ( Amer) >60 (>=60) Est GFR (Non-Af Amer) >60 (>=60) BUN/Creatinine Ratio 17.9 Glucose 103 (74-106) mg/dL Calcium 9.1 (8.5-10.1) mg/dL Total Bilirubin 0.3 (0.2-1.0) mg/dL AST 27 (15-37) U/L ALT 42 (14-59) U/L Alkaline Phosphatase 88 (46-116) U/L NT-Pro-B Natriuret Pep 76.0 (<=900.0) pg/mL Total Protein 7.1 (6.4-8.2) g/dL Albumin 3.0 L (3.4-5.0) g/dL Globulin 4.1 g/dL Albumin/Globulin Ratio 0.[address] scan - abdomen: Attestation: I have reviewed the pertinent imaging results. Radiologist's impression: Procedure: CT abdomen pelvis w con EXAM: CT scan of the abdomen and pelvis using 98 mL of IV iodinated contrast. Dose reduction technique used: Automated exposure control and/or adjustment of the mA and/or kV according to patient size and/or use of iterative reconstruction technique. REASON FOR EXAM: Right sided abdominal pain COMPARISON: None FINDINGS: Prominent fat stranding within the subcutaneous fat of the pannus with overlying skin thickening. No associated fluid collection, abscess or soft tissue emphysema. Not all of the abdominal wall is included within the [id number] which limits sensitivity the exam. Lower thoracic laminectomy. Advanced lumbar spine degenerative change. Tiny right renal cyst. Cholecystectomy. Colonic diverticulosis. Hysterectomy. Normal appendix. No free fluid in the abdomen or pelvis. No free intraperitoneal air. No dilated or thickened loops of small bowel or colon. No hydronephrosis or obstructing renal or ureteral calculi. Liver, pancreas, spleen, bilateral kidneys, and bilateral adrenal glands are otherwise unremarkable. No lymphadenopathy in the abdomen or pelvis. Remainder unremarkable. IMPRESSION: Anterior abdominal wall/pannus skin thickening and soft tissue swelling which could be due to soft tissue infection, dermatitis or edema, correlate clinically. Electronically authenticated by: ERIC MCCARTY Date: 04/21/2023 15:48 Discharge Plan Discharge Chief Complaint: Extremity Injury, Lower Clinical Impression: Abdominal wall pain Patient Disposition: Home, Self-Care Time of Disposition Decision: 16:01 Condition: Good Prescriptions / Home Meds: New oxycodone-acetaminophen [Percocet] 5-325 mg tablet 1 tab PO Q6H PRN (Reason: pain) Qty: 15 0RF Rx Instructions: DX: R10.9 cephalexin 500 mg capsule 500 mg PO Q8H 10 Days Qty: 30 0RF ondansetron 4 mg tablet,disintegrating 4 mg PO Q6H PRN (Reason: nausea and vomiting) Qty: 12 0RF No Action cyclobenzaprine 10 mg tablet 10 mg PO QPM PRN (Reason: as needed) pioglitazone 30 mg tablet 30 mg PO DAILY lantus 50 mg 50 mg subcut (via wearable injectr) QDAY losartan [Cozaar] 25 mg tablet 25 mg PO DAILY pregabalin [Lyrica] 150 mg capsule 150 mg PO TID Rx Instructions: 1 TAB IN AM 2 TABS AT BEDTIME metformin 1,000 mg tablet 1,000 mg PO BID atorvastatin 10 mg tablet 10 mg PO DAILY amitriptyline 50 mg tablet 50 mg PO DAILY Trulicity 3 mg/0.5 mL pen injector 3 mg subcut QWEEK duloxetine 60 mg capsule,delayed release(DR/EC) 60 mg PO DAILY Hold Instructions: not taking anymore Instructions: Acute Abdominal Pain (ED) Stand Alone Forms: Portal Instructions Referrals: Sophie Buenrostro [Primary Care Provider] - 1 week
--- NOTE | 2023-04-21 14:39 | CT_ITS ---
The [address] [address] Patient Name: ESTEBAN MARMOLEJO MRN: [id number] date: 1970 Sex: F Assigned Patient Location: ER Current Patient Location: ER Accession/Order Number: [id number] Exam Date: 04/21/2023 15:13 Report Date: 04/21/2023 15:48 At the request of: NESSA HOOKER Procedure: CT abdomen pelvis w con EXAM: CT scan of the abdomen and pelvis using 98 mL of IV iodinated contrast. Dose reduction technique used: Automated exposure control and/or adjustment of the mA and/or kV according to patient size and/or use of iterative reconstruction technique. REASON FOR EXAM: Right sided abdominal pain COMPARISON: None FINDINGS: Prominent fat stranding within the subcutaneous fat of the pannus with overlying skin thickening. No associated fluid collection, abscess or soft tissue emphysema. Not all of the abdominal wall is included within the [id number] which limits sensitivity the exam. Lower thoracic laminectomy. Advanced lumbar spine degenerative change. Tiny right renal cyst. Cholecystectomy. Colonic diverticulosis. Hysterectomy. Normal appendix. No free fluid in the abdomen or pelvis. No free intraperitoneal air. No dilated or thickened loops of small bowel or colon. No hydronephrosis or obstructing renal or ureteral calculi. Liver, pancreas, spleen, bilateral kidneys, and bilateral adrenal glands are otherwise unremarkable. No lymphadenopathy in the abdomen or pelvis. Remainder unremarkable. CT/CT abdomen pelvis w con IMPRESSION: Anterior abdominal wall/pannus skin thickening and soft tissue swelling which could be due to soft tissue infection, dermatitis or edema, correlate clinically. Electronically authenticated by: ERIC MCCARTY Date: 04/21/2023 15:48
[2023-04-21] MEDS: HYDROMORPHONE HCL 0.5 MG/0.5 ML SYRINGE 1 MG IV (14:49)
[2023-04-21 14:50] VITALS: RESP 16
[2023-04-21] MEDS: ONDANSETRON PF 4 MG/2 ML VIAL IV (14:50)
[2023-04-21 16:31] VITALS: BP 180/102; PULSE 95; RESP 18; O2SAT 97
--- NOTE | 2023-04-21 16:31 | PC.NURSE ---
PA informed of pt's BP, pt to follow up with PCP. Pt verbalized understanding.
== END 2023-04-21 16:37 | disposition home or self-care (01) ==
PROVIDERS: Physician Assistant; Emergency Provider Emergency Medicine; PCP Nurse Practitioner
DX: R10.9 Unspecified abdominal pain (principal); E66.01 Morbid (severe) obesity due to excess calories; G89.29 Other chronic pain; M54.9 Dorsalgia, unspecified; Z68.44 Body mass index [BMI] 60.0-69.9, adult; Z90.710 Acquired absence of both cervix and uterus; Z79.84 Long term (current) use of oral hypoglycemic drugs; Z90.49 Acquired absence of other specified parts of digestive tract; Z79.899 Other long term (current) drug therapy; Z79.85 Long-term (current) use of injectable non-insulin antidiabetic drugs
CPT/HCPCS: 36415; 74177; 80053; 83880; 85025; 85610; 96374; 96375; 99285; J1170; Q9967

== ENCOUNTER 2023-05-09 07:50 | Day surgery (SDC) | payer MEDICARE, MEDICAID, SELFPAY ==
[2023-05-09 08:16] VITALS: BP 199/98; PULSE 104; RESP 16; TEMP 36.3; O2SAT 98
[2023-05-09 08:18] LABS: Glucometer 132 mg/dL (74-106)
[2023-05-09 08:44] VITALS: BP 197/89; PULSE 101; RESP 18; O2SAT 98
[2023-05-09] MEDS: BUPIVACAINE HCL 0.25% PF 25 MG/10 ML VIAL 2 ML INJ (08:48)
[2023-05-09] MEDS: IOHEXOL 240 MG/ML - 10 ML VIAL INJ (08:49)
[2023-05-09] MEDS: LIDOCAINE HCL 2% PF 100 MG/5 ML VIAL 3 ML INJ (08:49)
[2023-05-09] MEDS: TRIAMCINOLONE ACETONIDE 40 MG/ML VIAL 80 MG INJ (08:50)
[2023-05-09 08:51] VITALS: BP 183/87; PULSE 92; RESP 18; O2SAT 97
--- NOTE | 2023-05-09 08:51 | W.PM.PROCNOT ---
Date of procedure: 05/09/23 Pre-op diagnosis: Lumbar stenosis with neurogenic claudication Post-op diagnosis: same as pre-op Procedure: Procedure: Bilateral L4-5 transforaminal epidural steroid injection Medications: Bupivacaine 0.25% 3cc, kenalog 40mg The patient was seen and examined in the preoperative holding area.? Informed consent was obtained and placed on the chart.? Patient was brought to the medical procedure unit and placed in the prone position where a timeout was completed verifying the correct patient, procedure site, position, and planned special equipment using sterile aseptic technique.? Under direct fluoroscopic visualization a 25-gauge Quincke tipped spinal needle was advanced at level left L4-5 to the designated neural foramen where contrast dye was injected to show adequate spread.? There was no evidence of vascular or adverse uptake.? Epidural spread was appreciated.? The above-mentioned injectate was then placed in a 1.5 mL aliquot preceded by negative aspiration.? The needle was removed. The same procedure, at the same level, was completed on the opposite side. ? Patient was taken to the postprocedural recovery area and monitored for an appropriate length of time before found suitable for discharge in the accompaniment of a responsible adult. Anesthesia: Local Surgeon: Alf Wylie Pathology: none sent Condition: stable Disposition: no change
== END 2023-05-09 08:55 | disposition home or self-care (01) ==
PROVIDERS: PCP Nurse Practitioner; Visit Provider Anesthesiology
DX: M48.062 Spinal stenosis, lumbar region with neurogenic claudication (principal); Z79.4 Long term (current) use of insulin
CPT/HCPCS: 36415; 64483; 82948; Q9966

== ENCOUNTER 2023-05-19 07:53 | Outpatient (OUT) | payer MEDICARE, MEDICAID, SELFPAY ==
--- NOTE | 2023-05-19 08:35 | P.CN_ITS ---
Consult Note: HPI Data of Consult Patient: known to practice within the last 3 years Requesting Physician: Mireya Edouard NP Primary Care Provider: Sophie Buenrostro Consult Narrative Reason for consult: f/u Narrative: Carine Shepherd a pleasant 52 year old female presents for evaluation and management of chronic low back pain with radiculopathy. Today rating pain 8/10. Patient has noticed increased abdominal pain and edema, has been to the ER for evaluation and is following with her PCP. Patient reporting 50% ongoing improvement in low back pain and radicular symptoms after bilateral L4-5 TFESI. Patient would like to discuss medication regimen today. cc:: CC: Mireya Edouard NP Review of Systems ROS Status of ROS 10 or more systems reviewed and unremarkable except as noted in h istory and below Gastrointestinal Reports: abdominal pain Musculoskeletal Reports: back pain PFSH PFSH Medical History Surgical History H/O dilation and curettage ?Z98.890 - Other specified postprocedural states (ICD-10) H/O laminectomy ?Z98.890 - Other specified postprocedural states (ICD-10) H/O: hysterectomy ?Z90.710 - Acquired absence of both cervix and uterus (ICD-10) Meds Home Medications and Allergies Home Medications Medication Instructions Recorded Confirmed Type amitriptyline 50 mg tablet 50 mg PO DAILY 12/10/22 05/09/23 History atorvastatin 10 mg tablet 10 mg PO DAILY 12/10/22 05/09/23 History cyclobenzaprine 10 mg tablet 10 mg PO QPM PRN as needed 12/10/22 05/09/23 History dulaglutide 3 mg/0.5 mL 3 mg subcut QWEEK 12/10/22 03/21/23 History subcutaneous pen injector (Trulicity) lantus 50 mg subcut (via wearable 12/10/22 05/09/23 History injectr) QDAY losartan 25 mg tablet (Cozaar) 25 mg PO DAILY 12/10/22 05/09/23 History metformin 1,000 mg tablet 1,000 mg PO BID 12/10/22 05/09/23 History pioglitazone 30 mg tablet 30 mg PO DAILY 12/10/22 05/09/23 History pregabalin 150 mg capsule (Lyrica) 150 mg PO TID 12/10/22 05/09/23 History cephalexin 500 mg capsule 500 mg PO Q8H 10 days #30 caps 04/21/23 05/09/23 Rx ondansetron 4 mg disintegrating 4 mg PO Q6H PRN nausea and 04/21/23 05/09/23 Rx tablet vomiting #12 tabs Allergies Allergy/AdvReac Type Severity Reaction Status Date / Time latex Allergy Mild Verified 05/09/23 08:01 Exam Narrative Exam Narrative: Modified exam, patient unable to stand for exam due to size and pain. Constitutional Documenting provider has reviewed patient's vital signs: yes Common normals: no apparent distress, oriented x3, healthy appearing, alert and well nourished General appearance: cooperative Nutritional appearance: obese HENMT Common normals: normocephalic, hearing grossly normal bilaterally and moist oral mucous membranes Head and scalp: normocephalic Eye Common normals: PERRL Pupil: PERRL Neck & C-Spine Common normals: full ROM General: normal visual inspection Chest Common normals: inspection of chest normal Respiratory Common normals: normal respiratory effort, no retractions and no use of accessory muscles Back & Pelvis Lumbar spine/lower back: ROM limited, pain with ROM and straight leg raise negative bilaterally Sacroiliac joints: SI joints normal (positive BETY bilaterally) Other: patient wheelchair bound, unable to stand or participate in exam today due to size and weakness/pain. modified exam as noted above low back pain increased with bilateral leg raise Extremity Common normals: normal to inspection Other: limited ROM Neuro Common normals: oriented x3, CN's II-XII intact bilaterally, moves all extremities, no focal motor deficits, no sensory deficits noted and deep tendon reflexes 2+ bilaterally Sensorium/orientation: alert Speech: speech normal Gait (neuro): unable to assess gait and assistive device used (wheelchair) other Motor exam: no movement abnormalities noted and strength abnormal (4/5 BLE) Psych Common normals: mental status grossly normal, thought process normal, cooperative, affect normal, speech normal and activity/motor behavior normal Speech: normal speech Thought process: normal thought process Results Additional Findings Additional findings: I have checked an [place]AR[place] report on this patient today and there are no aberrancies noted in the prescribing history.?? A drug screen was completed and reviewed within the last year, and if there has not been a drug screen completed we ordered one today to monitor higher risk, state monitored pain medication use. As part of providing excellent, safe, comprehensive care, the following was comp leted at our patient's visit: 1. A medication reconciliation and review to ensure accurate knowledge of current/active medications, including asking our patients to inform us about any [id number] medications or herbal remedies/nutritional supplements/alternative remedies. 2. A review to specifically ensure our patients have had annual screening for: elevated body mass index (BMI), tobacco use, screening for depression, and screening for unhealthy alcohol use. When screening is concerning, patients are provided with education and the specific recommendation to discuss the concerning health issue and treatment options with their primary care provider. Assessment and Plan Assessment and Plan (1) Lumbar stenosis with neurogenic claudication: (2) Lumbar postlaminectomy syndrome: (3) Lumbar spondylosis: (4) Sacroiliac joint dysfunction of both sides: (5) Muscle spasm: Plan start robaxin 500mg 1-2 tabs BID PRN daytime use for muscle spasms and low back pain continue lyrica through pcp, consider increase or rotation to zonegran in the future Blood pressure is elevated today. No signs or symptoms of PA/CVA including chest pain, SOB, left sided acute neck, arm, or jaw pain (separate from chronic pain complaint), diaphoresis, facial drooping, new acute neuro changes in both upper and lower extremities (other than those mentioned in the note above). Recommend follow up with PCP for further evaluation and treatment.? continue flexeril 10mg HS not to be used with robaxin continue tylenol ibuprofen PRN continue HEP f/u 2 months, consider repeat TANO in the future
== END 2023-05-19 07:54 | disposition home or self-care (01) ==
LOC: PM 07:54
PROVIDERS: PCP Nurse Practitioner; Visit Provider Nurse Practitioner
DX: M48.062 Spinal stenosis, lumbar region with neurogenic claudication (principal); M96.1 Postlaminectomy syndrome, not elsewhere classified; M47.816 Spondylosis without myelopathy or radiculopathy, lumbar region; M53.3 Sacrococcygeal disorders, not elsewhere classified; M62.838 Other muscle spasm
CPT/HCPCS: G0463

== ENCOUNTER 2023-11-14 11:12 | Outpatient (OUT) | payer MEDICARE, MEDICAID, SELFPAY ==
[2023-11-14 11:47] LABS: Basophils Percent Auto 0.4 % (0.2-2.0); Eosinophils Absolute Auto 0.4 10^3/uL (0.0-0.7); Eosinophils Percent Auto 4.7 % (0.9-7.0); Hematocrit 36.2 % (36.0-48.0); Hemoglobin 10.8 g/dL (12.0-16.0); Immature Granulocytes Abs Auto 0.06 10^3/uL (0.00-0.03); Immature Granulocytes Pct Auto 0.7 % (0.0-0.5); Lymphocytes Absolute Auto 2.1 10^3/uL (1.2-3.8); Lymphocytes Percent Auto 25.4 % (20.5-60.0); Mean Corpuscular HGB Conc 29.8 g/dL (29.9-35.2); Mean Corpuscular Hemoglobin 26.3 pg (26.7-34.0); Mean Corpuscular Volume 88.1 fL (81.0-99.0); Mean Platelet Volume 11.7 fL (9.5-13.5); Monocytes Absolute Auto 0.5 10^3/uL (0.3-0.8); Monocytes Percent Auto 6.1 % (1.7-12.0); Neutrophils Absolute Auto 5.1 10^3/uL (1.4-6.5); Neutrophils Percent Auto 62.7 % (43.0-75.0); Platelet Count 178 10^3/uL (150-450); Red Blood Count 4.11 10^6/uL (4.20-5.40); Red Cell Distribution Width 16.7 % (11.0-15.0); White Blood Count 8.1 10^3/uL (4.0-11.0)
[2023-11-14 12:09] LABS: Alanine Aminotransferase 30 U/L (14-59); Albumin Globulin Ratio 0.7; Alkaline Phosphatase 67 U/L (46-116); Aspartate Amino Transferase 24 U/L (15-37); BUN Creatinine Ratio 8.1; Bilirubin Total 0.5 mg/dL (0.2-1.0); Calcium 9.1 mg/dL (8.5-10.1); Carbon Dioxide 29.9 mmol/L (21.0-32.0); Chloride 103 mmol/L (98-107); Chol HDL Ratio 2.2; Cholesterol 95 mg/dL (<=200); Estimated Average Glucose 103 mg/dL; Estimated GFR (African America >60 (>=60); Estimated GFR (Non-African Ame >60 (>=60); Globulin 4.1 g/dL; Glucose 97 mg/dL (74-106); Glycohemoglobin A1C 5.2 % (4.5-6.2); HDL Cholesterol 44 mg/dL (40-60); LDL Cholesterol Calculated 33.6 mg/dL; Potassium 3.9 mmol/L (3.5-5.1); Sodium 142 mmol/L (136-145); Total Protein 7.1 g/dL (6.4-8.2); Triglycerides 87 mg/dL (<=150); VLDL CHOLESTEROL 17.4 mg/dL
[2023-11-14 13:25] LABS: Creatinine Urine Random 97.33 mg/dL (20.00-300.00); Microalbum Creatinine Ratio Ur 22.6 mg/g (0.0-29.9); Microalbumin Urine Random 2.2 mg/dL (<=30.0)
[2023-11-14 14:12] LABS: Bilirubin Urine NEGATIVE (NEGATIVE); Blood Urine NEGATIVE (NEGATIVE); Clarity Urine CLEAR (CLEAR); Color Urine LT. YELLOW (YELLOW); Glucose Urine UA NEGATIVE (NEGATIVE); Ketones Urine NEGATIVE (NEGATIVE); Leukocyte Esterase Urine NEGATIVE (NEGATIVE); Nitrite Urine NEGATIVE (NEGATIVE); Protein Urine NEGATIVE (NEG/TRACE); Urobilinogen Urine 0.2 EU/dL (0.2-1.0); pH Urine 5.5 (5.0-9.0)
[2023-11-14 14:13] LABS: Urine Microscopic Indicated NO
== END 2023-11-14 11:13 | disposition home or self-care (01) ==
LOC: LAB 11:14
PROVIDERS: PCP Nurse Practitioner; Visit Provider Nurse Practitioner
DX: E78.2 Mixed hyperlipidemia (principal); D50.9 Iron deficiency anemia, unspecified; I10 Essential (primary) hypertension; E11.69 Type 2 diabetes mellitus with other specified complication; Z79.4 Long term (current) use of insulin
CPT/HCPCS: 36415; 80053; 80061; 81003; 82043; 82570; 82728; 83036; 83540; 85025

== ENCOUNTER 2024-10-11 08:11 | Outpatient (OUT) | payer MEDICARE, MEDICAID, SELFPAY ==
[2024-10-11 08:41] LABS: Basophils Percent Auto 0.4 % (0.2-2.0); Eosinophils Absolute Auto 0.3 10^3/uL (0.0-0.7); Eosinophils Percent Auto 3.1 % (0.9-7.0); Hematocrit 33.3 % (36.0-48.0); Hemoglobin 10.1 g/dL (12.0-16.0); Immature Granulocytes Abs Auto 0.05 10^3/uL (0.00-0.03); Immature Granulocytes Pct Auto 0.5 % (0.0-0.5); Lymphocytes Absolute Auto 2.2 10^3/uL (1.2-3.8); Lymphocytes Percent Auto 23.5 % (20.5-60.0); Mean Corpuscular HGB Conc 30.3 g/dL (29.9-35.2); Mean Corpuscular Hemoglobin 24.4 pg (26.7-34.0); Mean Corpuscular Volume 80.4 fL (81.0-99.0); Mean Platelet Volume 10.9 fL (9.5-13.5); Monocytes Absolute Auto 0.5 10^3/uL (0.3-0.8); Monocytes Percent Auto 4.9 % (1.7-12.0); Neutrophils Absolute Auto 6.4 10^3/uL (1.4-6.5); Neutrophils Percent Auto 67.6 % (43.0-75.0); Platelet Count 189 10^3/uL (150-450); Red Blood Count 4.14 10^6/uL (4.20-5.40); Red Cell Distribution Width 17.1 % (11.0-15.0); White Blood Count 9.4 10^3/uL (4.0-11.0)
[2024-10-11 09:18] LABS: Alanine Aminotransferase 25 U/L (14-59); Albumin Globulin Ratio 0.7; Albumin Level 3.1 g/dL (3.4-5.0); Alkaline Phosphatase 88 U/L (46-116); Anion Gap 15.1; Aspartate Amino Transferase 25 U/L (15-37); BUN Creatinine Ratio 7.6; Bilirubin Total 0.4 mg/dL (0.2-1.0); Calcium 9.2 mg/dL (8.5-10.1); Carbon Dioxide 27.5 mmol/L (21.0-32.0); Chloride 101 mmol/L (98-107); Chol HDL Ratio 2.8; Cholesterol 124 mg/dL (<=200); Estimated GFR (African America >60 (>=60 mL/min/1.73m^2); Estimated GFR (Non-African Ame 55 (>=60 mL/min/1.73m^2); Globulin 4.3 g/dL; Glucose 106 mg/dL (74-106); HDL Cholesterol 45 mg/dL (40-60); LDL Cholesterol Calculated 56.8 mg/dL; Potassium 3.6 mmol/L (3.5-5.1); Sodium 140 mmol/L (136-145); Total Protein 7.4 g/dL (6.4-8.2); Triglycerides 111 mg/dL (<=150); VLDL CHOLESTEROL 22.2 mg/dL
[2024-10-11 09:35] LABS: Percent Iron Saturation 10.4 %
[2024-10-12 05:07] LABS: Transferrin 319 mg/dL (192-364)
== END 2024-10-11 08:12 | disposition home or self-care (01) ==
LOC: LAB 08:19
PROVIDERS: PCP Nurse Practitioner; Visit Provider Nurse Practitioner
DX: K21.9 Gastro-esophageal reflux disease without esophagitis (principal); D50.9 Iron deficiency anemia, unspecified; I10 Essential (primary) hypertension; E11.69 Type 2 diabetes mellitus with other specified complication; Z79.4 Long term (current) use of insulin
CPT/HCPCS: 36415; 80053; 80061; 82043; 82570; 82728; 83540; 83550; 84466; 85025